=== PATIENT | male | born 1985 | race Caucasian/White ===

== ENCOUNTER 2021-07-27 08:05 | Emergency (ER) | payer OTHER, SELFPAY ==
--- NOTE | 2021-07-27 08:04 | ECG_ITS ---
APPROVED REPORT Exam: Resting ECG HR:84 bpm ECG Measurements Heart Rate 84 AXES GA 172 P 58 QRSd 102 QRS 43 QT 329 T 35 QTc 370 Conclusion SINUS RHYTHM NORMAL ECG UNCONFIRMED REPORT Electronically signed by : Devin Ceja MD 07/28/2021 13:51:02
[2021-07-27 08:06] VITALS: BP 141/98; PULSE 97; RESP 18; TEMP 36.8; O2SAT 98; BMI 23.7
--- NOTE | 2021-07-27 08:20 | XR_ITS ---
FINAL REPORT TECHNIQUE: Single view chest CLINICAL HISTORY: chest pain/ smoker FINDINGS: A single view of the chest was obtained. The heart and mediastinum are within normal limits. The lungs are clear. There is no pneumothorax. Osseous structures are unremarkable. IMPRESSION: No acute cardiopulmonary process. Reviewed, Interpreted and Dictated by Derrek Laurent MD Transcribed by Vicki Petersen Authenticated by Derrek Laurent MD on 07/27/2021 10:12:10 AM [facility]
[2021-07-27 08:31] LABS: Chloride 104 mmol/L (98-107)
[2021-07-27 08:32] LABS: Sodium 136 mmol/L (136-145)
[2021-07-27 08:34] LABS: Alanine Aminotransferase 31 U/L (12-78); Aspartate Amino Transferase 36 U/L (17-59); Blood Urea Nitrogen 14 mg/dl (9-20); Creatinine Clearance Estimated 125 mL/min (50-200); Estimated Glomerular Filt Rate 94 ml/min (>60); GFR (African American) 114 ML/MIN (>60)
[2021-07-27 08:35] LABS: Albumin Level 4.8 g/dl (3.5-5.0); Albumin/Globulin Ratio 1.3 (1.1-1.8); Alkaline Phosphatase 90 U/L (38-126); Bilirubin,Total 0.5 mg/dl (0.2-1.3); Calcium 8.9 mg/dl (8.4-10.2); Carbon Dioxide 26 mmol/L (22.0-30.0); Globulin 3.7 g/dL (1.3-3.2); Glucose 96 mg/dl (74-100); Lipase 92 U/L (23-300); Total Protein,Serum 8.5 g/dl (6.3-8.2)
[2021-07-27 08:37] LABS: Basophils # 0.1 K/mm3 (0-0.2); Basophils % 0.8 % (0.1-2.0); Eosinophils # 0.5 K/mm3 (0.0-0.4); Eosinophils % 6.6 % (0.1-12.0); Hematocrit 48.4 % (42.0-52.0); Hemoglobin 16.3 g/dL (14.1-18.0); Lymphocytes # 2.1 K/mm3 (0.7-4.5); Lymphocytes % 27.8 % (10-50); Mean Corpuscular HGB Conc 33.7 g/dL (31.8-35.4); Mean Corpuscular Hemoglobin 29.7 pg (27.0-31.2); Mean Corpuscular Volume 88.2 fl (80-94); Mean Platelet Volume 7.1 fl (7.4-10.4); Monocytes # 0.4 K/mm3 (0.1-1.0); Monocytes % 5.5 % (1.7-9.3); Neutrophils # 4.4 K/mm3 (1.8-7.8); Neutrophils % 59.2 % (37.0-80.0); Platelet Count 384 K/mm3 (142-424); Red Blood Count 5.49 M/mm3 (4.60-6.20); Red Cell Distribution Width 12.9 % (11.5-17.5); White Blood Count 7.3 K/mm3 (4.8-10.8)
--- NOTE | 2021-07-27 08:38 | [facility].EDCP ---
ED Disposition Clinical Impression: Chest wall pain Disposition: Home, Self-Care Condition on Discharge: Good Instructions: DI for Atypical Chest Pain Prescriptions: Naproxen [Naproxen 500mg tab] 500 mg PO BID #20 tab Transmission Status: Pending to [employer] [facility] [employer] #[id number] - Critical Care Critical Care Time: No Attestation: On , the high probability of a clinically significant, sudden or life threatening deterioration of the following system(s) required my full and direct attention, intervention and personal management. The time I documented below is in addition to time spent performing reported procedures but includes the following listed in this critical care notation. Medical Decision Making - Medical Records Medical records reviewed: Yes: I reviewed the patient's medical records. - Gurpreet Inquiry Pt receiving controlled substance: No Vital Signs: 07/27/21 08:06 Temperature 98.2 F Temperature Source Oral Pulse Rate [Left Radial] 97 H Respiratory Rate 18 Blood Pressure [Right Arm] 141/98 H Blood Pressure Mean [Right Arm] 112 Blood Pressure Source [Right Arm] Automatic Cuff Blood Pressure Position [Right Arm] Sitting 02 Sat by Pulse Oximetry 98 Oxygen Delivery Method Room Air - Lab Data Lab Results 07/27/21 08:11: WBC 7.3, RBC 5.49, Hgb 16.3, Hct 48.4, MCV 88.2, MCH 29.7, MCHC 33.7, RDW 12.9, Plt Count 384, MPV 7.1 L, Neut % (Auto) 59.2, Lymph % (Auto) 27.8, Wharton % (Auto) 5.5, Eos % (Auto) 6.6, Baso % (Auto) 0.8, Neut # (Auto) 4.4, Lymph # (Auto) 2.1, Wharton # (Auto) 0.4, Eos # (Auto) 0.5 H, Baso # (Auto) 0.1 07/27/21 08:11: Sodium 136, Potassium 4.0, Chloride 104, Carbon Dioxide 26, Anion Gap 10.0, BUN 14, Creatinine 0.90, Estimated Creat Clear 125, Estimated GFR 94, Est GFR ( Amer) 114, Glucose 96, Calcium 8.9, Total Bilirubin 0.5, AST 36, ALT 31, Alkaline Phosphatase 90, Troponin I < 0.01, Total Protein 8.5 H, Albumin 4.8, Globulin 3.7 H, Albumin/Globulin Ratio 1.3, Lipase 92 07/27/21 08:11: NT-Pro-B Natriuret Pep 39.5 Result diagrams: 07/27/21 08:11 07/27/21 08:11 Orders (Tests/Meds): ED MEDICATIONS Discontinued Medications Generic Name Dose Route Start Last Admin Trade Name Hermann PRN Reason Stop Dose Admin Ketorolac Tromethamine 30 mg 07/27/21 08:21 07/27/21 08:29 Ketorolac 30mg/Ml Vial IV 07/27/21 08:22 30 mg ONCE ONE Administration ORDERS Category Date Time Status XR chest portable Stat Exams 07/27/21 08:20 Taken Troponin I Q3H Lab 07/27/21 11:30 Ordered Troponin I Q3H Lab 07/27/21 14:30 Ordered - Radiology Data #1 Image(s): Chest Image Reviewed: Yes I reviewed the patient's radiology results, Yes I reviewed the patient's radiology image, Yes I have reviewed radiologist's interpretation - ECG Data Tracing #1 I reviewed this ECG and interpreted as documented below: ECG initial impression date: 07/27/21 ECG initial impression time: 08:04 ECG normal with no acute: arrhythmias, ischemia, conduction abnormalities, chamber hypertrophy Normal Sinus Rhythm: Yes - Reevaluation(s) Time: 09:46 Reevaluation #1: On reevaluation, patient is pain-free. EKG is unremarkable. Troponin negative. Pain is reproducible chest wall to believe is more consistent with costochondritis and chest wall discomfort. Patient to follow-up with PCP in 48 hours. Given strict return precautions. Verbalized understanding. - CAROLYN Score for Non-Stemi Age of Patient: 30-39 years old Heart Rate: 90-109 bpm Systolic Blood Pressure: 140-159 mmHg Serum Creatinine: <0.40 mg/dl CHF Killip Class: I-No CHF Other Risk Factors: None Non-Stemi Risk Score: 48 Risk Stratification: 1-108 = Low Risk Medical Decision Narrative: 36-year-old male presenting with some chest discomfort. Pain is reproducible on physical examination. More consistent with chest wall pain. Patient is low risk based on heart score. Work-up initiated. Chest Pain HPI - General Chief
[2021-07-27 08:44] LABS: NT Pro Brain Natriuretic Pep. 39.5 pg/mL (0-125)
[2021-07-27 08:48] LABS: Troponin I < 0.01 ng/ml (0.00-0.034)
[2021-07-27 10:23] VITALS: BP 123/65; PULSE 65; RESP 16; TEMP 36.6; O2SAT 98
== END 2021-07-27 10:24 | disposition home or self-care (01) ==
PROVIDERS: Emergency Provider Emergency Medicine
DX: R07.89 Other chest pain (principal); R20.0 Anesthesia of skin; R68.84 Jaw pain
CPT/HCPCS: 71045; 80053; 83690; 83880; 84484; 85025; 93005; 96374; 99283; 99284